=== PATIENT | male | born 1960 | race Caucasian/White ===

== ENCOUNTER 2016-05-28 15:33 | Emergency (ER) | payer BC, OTHER ==
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
[2016-05-28] MEDS ORDERED: ACETAMINOPHEN 325 MG TABLET PO ONE (19:51)
[2016-05-28] MEDS ORDERED: HYDROCODONE/ACETAMINOPHEN 5-325 MG 6 TAB/DSPK PO PRN (19:51)
[2016-05-28] MEDS ORDERED: ONDANSETRON 4 MG TAB.RAPDIS PO ONE (19:51)
[2016-05-28] MEDS ORDERED: DIPH/PERTUSS(ACELL)/TETANUS VAC/PF 0.5 ML SYR (>=10YO) IM ONE (19:52)
[2016-05-29 01:22] VITALS: BP 145/68
== END 2016-05-28 20:14 | disposition home or self-care (01) ==
LOC: ER 15:33
DX: S50.01XA Contusion of right elbow, initial encounter (principal); S00.01XA Abrasion of scalp, initial encounter; R07.81 Pleurodynia; W31.89XA Contact with other specified machinery, initial encounter; Y99.0 Civilian activity done for income or pay; I10 Essential (primary) hypertension
CPT/HCPCS: 99283; 90471; 73080; 90715; S0119